=== PATIENT | female | born 1975 | race African-American/Black ===

== ENCOUNTER 2021-10-08 20:21 | Emergency (ER) | payer MEDICAID, OTHER ==
[2021-10-09 16:57] LABS: SARS-CoV-2 PCR by NAA DETECTED (NotDetected)
== END 2021-10-08 21:28 | disposition home or self-care (01) ==
LOC: CSHERS 20:21
DX: U07.1 COVID-19 (principal)
CPT/HCPCS: 99283; U0003; U0005

== ENCOUNTER 2021-10-18 14:10 | Emergency (ER) | payer OTHER ==
[2021-10-18] MEDS ORDERED: Cyclobenzaprine 10 MG TAB ONE (19:42)
[2021-10-18] MEDS ORDERED: Ketorolac Tromethamine 30 MG/ML VIAL ONE (19:42)
== END 2021-10-18 20:17 | disposition home or self-care (01) ==
LOC: CSHERS 14:10
DX: M54.50 Low back pain, unspecified (principal); G40.909 Epilepsy, unspecified, not intractable, without status epilepticus; G43.909 Migraine, unspecified, not intractable, without status migrainosus; E03.9 Hypothyroidism, unspecified; Z79.899 Other long term (current) drug therapy
CPT/HCPCS: 96372; 99283; J1885